=== PATIENT | female | born 1995 | race Caucasian/White ===

== ENCOUNTER 2016-06-13 14:19 | Emergency (ER) | payer OTHER ==
[2016-06-13 14:30] VITALS: BP 114/63
== END 2016-06-13 16:49 | disposition left against medical advice (07) ==
LOC: ED 14:19
DX: R10.9 Unspecified abdominal pain (principal); Z53.21 Procedure and treatment not carried out due to patient leaving prior to being seen by health care provider
CPT/HCPCS: 99281

== ENCOUNTER 2016-06-16 20:31 | Emergency (ER) | payer OTHER ==
[2016-06-16] MEDS ORDERED: NS 0.9% 1000 ML* 2,000 ML IV ONE (21:17)
[2016-06-16] MEDS ORDERED: Ketorolac INJ* 30 MG/ML 1 ML VIAL IV PUSH ONE (21:23)
[2016-06-16 21:46] LABS: Hematocrit 28 % (35-47); Hemoglobin 8.4 g/dl (12.0-16.0); Mean Corpuscular HGB Conc 30 g/dl (31-36); Mean Corpuscular Hemoglobin 18 pg (27-31); Mean Corpuscular Volume 61 fL (80-97); Mean Platelet Volume 10 um3 (7.4-10.4); Red Blood Count 4.58 10^6/ul (4.0-5.4); Red Cell Distribution Width 18 % (10.5-15)
[2016-06-16 21:47] LABS: Add Diff/Slide Review? Slide Review Added; Comments Flag Yes
[2016-06-16 21:57] LABS: Urine Bacteria Absent (Absent); Urine Bilirubin Negative (Negative); Urine Glucose Negative (Negative); Urine Nitrite Negative (Negative)
--- NOTE | 2016-06-16 21:59 | RAD ---
INDICATION: Left-sided flank abdominal pain. COMPARISON: Comparison is made with a prior pelvic ultrasound from February 28, 2016. TECHNIQUE: A CT scan of the abdomen and pelvis was performed without intravenous or oral contrast. Contiguous axial sections were obtained from the lung bases through the symphysis pubis. Images were reconstructed in the coronal and sagittal planes. FINDINGS: The lung bases are clear. No pleural effusion is present. The liver is normal in size without focal abnormality on this noncontrast study. No calcified gallstones are seen. The spleen is mildly enlarged. The pancreas appears within normal limits in size. The adrenal glands and kidneys are normal in size. No renal calculi or hydronephrosis is seen. No ureteral or bladder calculi are seen. The aorta is normal in caliber without significant calcific plaque. No significant enlarged retroperitoneal lymph nodes are seen. The stomach, small and large bowel appear nondistended. The appendix is within normal limits. There is no evidence for diverticulitis or colitis. The uterus is anteverted and upper limits of normal in size. There is prominence of the endometrial density which appears abnormally thick measuring 2.5 cm in thickness. This has increased in size from the prior ultrasound study at which time it was also abnormal. No free intraperitoneal air or fluid is seen. No significant focal osseous abnormality is seen. IMPRESSION: 1. NO EVIDENCE FOR NEPHRO OR UROLITHIASIS. 2. THE ENDOMETRIAL DENSITY APPEARS ABNORMALLY THICKENED. RECOMMEND A PELVIC ULTRASOUND FOR FURTHER EVALUATION. 3. MILD SPLENOMEGALY.
[2016-06-16 22:06] LABS: Add Path Review? YES; Hypochromasia 1+; Microcytosis 2+
[2016-06-16 22:07] LABS: ALT 9 U/L (7-52); AST 9 U/L (13-39); Albumin 4.3 g/dL (3.2-5.2); Alkaline Phosphatase 68 U/L (34-104); Anion Gap 6 mmol/L (2-11); BUN/Creatinine Ratio 18.2 (8-20); Blood Urea Nitrogen 10 mg/dL (6-24); CO2 Carbon Dioxide 22 mmol/L (22-32); Calcium 9.3 mg/dL (8.6-10.3); Chloride 105 mmol/L (101-111); EGFR African American 181.2 (>60); EGFR Non-African American 140.9 (>60); Globulin 2.7 g/dL (2-4); Glucose 90 mg/dL (70-100); Lipase 16 U/L (11.0-82.0); Sodium 133 mmol/L (133-145)
--- NOTE | 2016-06-16 23:16 | ED ---
Abdominal Pain/Female - HPI Summary HPI Summary: 20 F presents with left sided flank pain and abdominal pain for 3 days. She admits to nausea and vomiting. She has never had this pain before. She denies any hematuria, dysuria, vaginal discharge. She says the pain sometimes radiates down to her groin. She does not have a history of kidney stones. She denies any fever, diarrhea or constipation. She has taken tyenlol for the pain. She has a history of abnormal uterine bleeding. - History of Current Complaint Chief Complaint: EDAbdPain Stated Complaint: ABD PAIN Time Seen by Provider: 06/16/16 21:15 Pain Intensity: 9 Allergies/Adverse Reactions: Allergies Allergy/AdvReac Type Severity Reaction Status Date / Time iv contrast dye Allergy Anaphylatic Uncoded 06/13/16 14:30 Shock oral contrast Allergy Anaphylatic Uncoded 06/13/16 14:30 Shock PMH/Surg Hx/FS Hx/Imm Hx Endocrine/Hematology History: Denies: Hx Anticoagulant Therapy Cardiovascular History: Denies: Hx Hypertension Neurological History: Reports: Other Neuro Impairments/Disorders - neurofibromatosis Infectious Disease History: No Infectious Disease History: Denies: Traveled Outside the [place] in Last 30 Days - Family History Known Family History: Positive: None Negative: Cardiac Disease Family History: R & n/C - Social History Alcohol Use: None Hx Substance Use: No Substance Use Type: Reports: None Smoking Status (MU): Current Every Day Smoker Review of Systems Negative: Fever Negative: Chest Pain Negative: Shortness Of Breath Positive: Abdominal Pain - left sided, Vomiting, Nausea. Negative: Diarrhea Negative: dysuria, hematuria All Other Systems Reviewed And Are Negative: Yes Physical Exam Vital Signs On Initial Exam: Initial Vitals Temp Pulse Resp BP Pulse Ox 99.3 F 98 18 105/72 100 06/16/16 20:46 06/16/16 20:46 06/16/16 20:46 06/16/16 20:46 06/16/16 20:46 Vital Signs Reviewed: Yes Appearance: Positive: Well-Appearing Skin: Positive: Warm, Dry Head/Face: Positive: Normal Head/Face Inspection Eyes: Positive: Normal, Conjunctiva Clear ENT: Positive: Normal ENT inspection, Pharynx normal Respiratory/Lung Sounds: Positive: Clear to Auscultation, Breath Sounds Present Cardiovascular: Positive: Normal, RRR Abdomen Description: Positive: Soft, CVA Tenderness (L), Other: - tenderness of LUQ and LLQ, no rebound tenderness Bowel Sounds: Positive: Present Pelvic Exam: Positive: external exam normal, speculum exam normal, bimanual exam normal. Negative: blood, discharge Diagnostics - Vital Signs Vital Signs Temp Pulse Resp BP Pulse Ox 06/16/16 20:46 99.3 F 98 18 105/72 100 - Laboratory Lab Results: Lab Results 06/16/16 06/16/16 06/16/16 Range/Units 21:30 21:30 21:30 WBC 11.0 H (3.5-10.8) 10^3/ul RBC 4.58 (4.0-5.4) 10^6/ul Hgb 8.4 L (12.0-16.0) g/dl Hct 28 L (35-47) % MCV 61 L (80-97) fL MCH 18 L (27-31) pg MCHC 30 L (31-36) g/dl RDW 18 H (10.5-15) % Plt Count 366 (150-450) 10^3/ul MPV 10 (7.4-10.4) um3 Neut % (Auto) 61.7 (38-83) % Lymph % (Auto) 24.1 L (25-47) % [place] % (Auto) 8.6 (1-9) % Eos % (Auto) 3.9 (0-6) % Baso % (Auto) 1.7 (0-2) % Absolute Neuts (auto) 6.8 (1.5-7.7) 10^3/ul Absolute Lymphs (auto) 2.6 (1.0-4.8) 10^3/ul Absolute Monos (auto) 0.9 H (0-0.8) 10^3/ul Absolute Eos (auto) 0.4 (0-0.6) 10^3/ul Absolute Basos (auto) 0.2 (0-0.2) 10^3/ul Absolute Nucleated RBC 0 10^3/ul Nucleated RBC % 0 Normal RBC Morphology Not Reportable Hypochromasia 1+ Microcytosis 2+ Hem Pathologist Commnt Pending Sodium 133 (133-145) mmol/L Potassium 4.0 (3.5-5.0) mmol/L Chloride 105 (101-111) mmol/L Carbon Dioxide 22 (22-32) mmol/L Anion Gap 6 (2-11) mmol/L BUN 10 (6-24) mg/dL Creatinine 0.55 (0.51-0.95) mg/dL Est GFR ( Amer) 181.2 (>60) Est GFR (Non-Af Amer) 140.9 (>60) BUN/Creatinine Ratio 18.2 (8-20) Glucose 90 (70-100) mg/dL Calcium 9.3 (8.6-10.3) mg/dL Total Bilirubin 0.50 (0.2-1.0) mg/dL AST 9 L (13-39) U/L ALT 9 (7-52) U/L Alkaline Phosphatase 68 (34-104) U/L C-React Prot High Sens < 0.20 mg/L Total Protein 7.0 (6.4-8.9) g/dL Albumin 4.3 (3.2-5.2) g/dL Globulin 2.7 (2-4) g/dL Albumin/Globulin Ratio 1.6 (1-3) Lipase 16 (11.0-82.0) U/L Beta HCG, Quant < 0.60 mIU/mL Urine Color Straw Urine Appearance Clear Urine pH 6.0 (5-9) Ur Specific [place] 1.008 L (1.010-1.030) Urine Protein Negative (Negative) Urine Ketones Negative (Negative) Urine Blood Negative (Negative) Urine Nitrate Negative (Negative) Urine Bilirubin Negative (Negative) Urine Urobilinogen Negative (Negative) Ur Leukocyte Esterase 2+ H (Negative) Urine WBC (Auto) Trace(0-5/hpf) (Absent) Urine RBC (Auto) Absent (Absent) Ur Squamous Epith Cells Present H (Absent) Urine Bacteria Absent (Absent) Urine Glucose Negative (Negative) Result Diagrams: 06/16/16 21:30 06/16/16 21:30 Lab Statement: Any lab studies that have been ordered have been reviewed, and results considered in the medical decision making process. - CT abdomen CT Interpretation: No Acute Changes - IMPRESSION: 1. NO EVIDENCE FOR NEPHRO OR UROLITHIASIS. 2. THE ENDOMETRIAL DENSITY APPEARS ABNORMALLY THICKENED. RECOMMEND A PELVIC ULTRASOUND FOR FURTHER EVALUATION. 3. MILD SPLENOMEGALY. CT Interpretation Completed By: Radiologist - Ultrasound No standard instances Ultrasound Interpretation: Positive (See Comments) - markedly thickened and heterogeneous endometrium could indiacte endometrial hyperplasia or carcinoma. further evaulation indicated Ultrasound Interpretation Completed By: Radiologist Re-Evaluation - Re-Evaluation First Eval Re-Evaluation Time: 23:36 Change: Improved Comment: patient pain now located in LLQ. Second Eval Re-Evaluation Time: 23:49 Change: Improved Comment: patient feeling okay, explained results Abdominal Pain Fem Course/Dx - Course Course Of Treatment: 20 F presents with left sided abdominal pain for 3 days. She orginial complained of flank pain but denied any hematuria. had positive CVA tenderness so got CT because orginial suspect kidney stone due to history, CT normal but saw abnormal endometrium, ordered U/s: endometrium hyperplasia , pelvic exam: normal do not suspect PID, explained do not have cause for abdominal pain as ruled out UTI, ovarian cyst, PID, kidney stone, WBC slightly elevated but CRP normal, H/H but no sign of active bleeding suspect has iron deficiency anemia will have follow up with primary and start OTC iron supplement , will have follow up with primary and obgyn for further workup, patient understands and agrees with plan - Diagnoses Differential Diagnosis: Positive: Pelvic Inflammatory Disease, Peptic Ulcer Disease, , Renal Colic, Urinary Tract Infection Provider Diagnoses: Abdominal pain Discharge - Discharge Plan Condition: Good Disposition: HOME Prescriptions: Ondansetron ODT TAB* [Zofran Odt TAB*] 4 mg PO Q6H PRN #20 tab.odt PRN Reason: Nausea Patient Education Materials: Abdominal Pain (ED) Referrals: Maggy Fernández MD [Medical Doctor] - Additional Instructions: Take Tylenol or ibuprofen every 6 hours for pain Take zofran every 6 hours as needed for nausea Follow up with obgyn Follow up with primaryt Return to ED if develop any new or worsening symptoms
[2016-06-16] MEDS ORDERED: Ketorolac INJ* 30 MG/ML 1 ML VIAL IM ONE (23:56)
[2016-06-17] MEDS ORDERED: Ondansetron ODT TAB* 4 MG PO ONE (00:10)
[2016-06-17 00:33] VITALS: BP 94/60
--- NOTE | 2016-06-17 07:57 | RAD ---
INDICATION: Left-sided abdominal pain COMPARISON: CT June 16, 2016 TECHNIQUE: Longitudinal and transverse transvaginal scans of the pelvis were obtained. FINDINGS: Uterus: The uterus is mildly prominent. There are no focal masses. The uterus measures 9.6 x 5.1 x 6.2 cm. Endometrial thickness: The endometrial thickness is measured at 3.5 cm. The endometriosis is heterogeneous. Free fluid: Small amount of . Ovaries: The ovaries are normal in size. The right ovary measures 2.8 x 2.4 x 2.0 cm. The left ovary measures 2.0 x 1.3 x 3.4 cm. . Doppler interrogation demonstrates flow to each ovary was not evaluated because the patient could not remain still during the examination because of abdominal pain. Other: None IMPRESSION: MARKEDLY THICKENED AND HETEROGENEOUS ENDOMETRIUM. SUGGEST GYNECOLOGIC REFERRAL.
--- NOTE | 2016-06-20 10:14 | PN ---
Progress Note - Progress Note Note: A message was left for the patient regarding her positive lab findings and that a prescription was sent to her pharmacy.
== END 2016-06-17 00:32 | disposition home or self-care (01) ==
LOC: ED 20:31
DX: R10.84 Generalized abdominal pain (principal); R11.2 Nausea with vomiting, unspecified; F17.210 Nicotine dependence, cigarettes, uncomplicated
CPT/HCPCS: 36415; 74176; 76830; 80053; 81003; 81015; 83690; 84702; 85025; 85060; 86141; 87086; 87480; 87491; 87510; 87591; 87661; 96372; 96374; 99282

== ENCOUNTER 2017-05-03 13:38 | Emergency (ER) | payer OTHER ==
--- NOTE | 2017-05-03 13:55 | ED ---
Laceration/Wound HPI - HPI Summary HPI Summary: 21 female presents to ED BIBA with complaints of right fifth finger laceration that she sustained while opening a sauce can around 1300 today. Patient denies any pain currently. Bleeding is well controlled. Has not taken any medication. Is not taking anticoagulants. Denies numbness/tingling. Is right hand dominant. No other complaints or injuries. No PMHx. - History of Current Complaint Stated Complaint: RT PINKY LAC Time Seen by Provider: 05/03/17 13:42 Hx Obtained From: Patient Mechanism of Injury: Sharp/Blunt Trauma - opening a sauce can Onset/Duration: Sudden Onset, Lasting Hours Aggravating: Movement Alleviating: Compression Timing: Constant Onset Severity: Mild Current Severity: None Pain Intensity: 0 Pain Scale Used: 0-10 Numeric Associated Signs & Symptoms: Negative Related Hx: Dominant Hand (Right) - Allergy/Home Medications Allergies/Adverse Reactions: Allergies Allergy/AdvReac Type Severity Reaction Status Date / Time iv contrast dye Allergy Anaphylatic Uncoded 06/13/16 14:30 Shock oral contrast Allergy Anaphylatic Uncoded 06/13/16 14:30 Shock PMH/Surg Hx/FS Hx/Imm Hx Endocrine/Hematology History: Denies: Hx Anticoagulant Therapy, Hx Diabetes Cardiovascular History: Denies: Hx Hypertension Neurological History: Reports: Other Neuro Impairments/Disorders - neurofibromatosis - Surgical History Surgery Procedure, Year, and Place: n/a - Immunization History Date of Tetanus Vaccine: UTD 2016 Date of Influenza Vaccine: UTD Immunizations Up to Date: Yes Infectious Disease History: No Infectious Disease History: Denies: Traveled Outside the [place] in Last 30 Days - Family History Known Family History: Positive: None Negative: Cardiac Disease Family History: R & n/C - Social History Alcohol Use: None Hx Substance Use: No Substance Use Type: Reports: None Smoking Status (MU): Current Every Day Smoker Review of Systems Constitutional: Negative Cardiovascular: Negative Respiratory: Negative Musculoskeletal: Negative Positive: Other - laceration Neurological: Negative All Other Systems Reviewed And Are Negative: Yes Physical Exam Triage Information Reviewed: Yes Vital Signs On Initial Exam: Initial Vitals Temp Pulse Resp BP Pulse Ox 97.5 F 89 18 103/61 100 05/03/17 13:48 05/03/17 13:48 05/03/17 13:48 05/03/17 13:48 05/03/17 13:48 Vital Signs Reviewed: Yes Appearance: Positive: Well-Appearing, No Pain Distress, Well-Nourished Skin: Positive: Warm, Skin Color Reflects Adequate Perfusion, Dry, Other - 1cm linear laceration on palmar fifth digit right hand beneath PIP. no FB, no active bleeding, no bony/ligamentous involvment. Negative: Cold, Cyanosis @, Pale, Erythema @ Eyes: Positive: Conjunctiva Clear ENT: Positive: Hearing grossly normal Neck: Positive: Supple Respiratory/Lung Sounds: Positive: Clear to Auscultation, Breath Sounds Present. Negative: Rales, Rhonchi, Wheezes Cardiovascular: Positive: Normal, RRR, Pulses are Symmetrical in both Upper and Lower Extremities - 2+ radial b/l. Negative: Murmur, Rub Musculoskeletal: Positive: Normal, Strength/ROM Intact, Pain @ - mild on palpation of laceration, Other - no crepitus step off or obvious deformity other than laceration noted on fifth right digit, palmar side. Negative: Limited @, Interruption @, Abnormal @, Edema Left, Edema Right Neurological: Positive: Normal, Sensory/Motor Intact, Alert, Oriented to Person Place, Time, CN Intact II-III, Reflexes Intact, NV Bundle Intact Distally, Normal Gait - [place] Coma Scale Coma Scale Total: 15 Procedures - Laceration/Wound Repair 1 Location: upper extremity - right 5fth digit Description: Linear Length, Depth and Shape: 1.0cm linear, superficial epidermal layer Betadine Prep?: Yes - in irrigation Irrigated w/ Saline (ccs): 500 Laceration/Wound Explored: clean, no foreign body removed Closure: Skin Adhesive Sterile Dressing Applied?: Yes - telfa, kerlex and coban Diagnostics - Vital Signs Vital Signs Temp Pulse Resp BP Pulse Ox 05/03/17 13:48 97.5 F 89 18 103/61 100 - Laboratory Lab Statement: Any lab studies that have been ordered have been reviewed, and results considered in the medical decision making process. Laceration Repair Course/Dx - Course Course Of Treatment: no xray obtained due to JEN and PE findings. laceration was superficial without bleeding. irrigated thouroughly, no concern for FB. Closed nicely with skin adhesive and without complication, well approximated. Patient tolerated procedure well. No other complaints or conerns. Tetanus UTD. Aware of worsening signs and symptoms such as infection. Ibuprofen as needed for discomfort. RICE and keep clean and dry. Apply triple antibiotic ointment - Differential Dx Differental Diagnoses: Abrasion, Avulsion, Fracture, Laceration - Clinical Impression Provider Diagnoses: Laceration of finger of right hand Discharge - Discharge Plan Condition: Stable Disposition: HOME Patient Education Materials: Laceration (ED), Skin Adhesive Care (ED) Referrals: Non Staff,Doctor [Primary Care Provider] - Additional Instructions: Do not get finger wet for 24-48 hours so glue has time to start working. Watch for signs of infection, if develops please seek medical attention (redness , discharge, pain, swelling). Keep clean and dry. After 3-4 days and once closes you may apply neosporin. Follow up with PCP. Any new or worsening symptoms please seek medical attention promptly.
[2017-05-03 16:47] VITALS: BP 0/0
== END 2017-05-03 16:46 | disposition home or self-care (01) ==
LOC: ED 13:51
DX: S61.216A Laceration without foreign body of right little finger without damage to nail, initial encounter (principal); W26.8XXA Contact with other sharp object(s), not elsewhere classified, initial encounter; Y93.G1 Activity, food preparation and clean up; Y92.9 Unspecified place or not applicable; Q85.00 Neurofibromatosis, unspecified; Z91.041 Radiographic dye allergy status; F17.210 Nicotine dependence, cigarettes, uncomplicated
CPT/HCPCS: 12001; 99281

== ENCOUNTER 2020-08-21 02:05 | Inpatient (IN) ==
[2020-08-21 03:20] LABS: Urine Appearance Cloudy; Urine Bilirubin Negative (Negative); Urine Blood Negative (Negative); Urine Color Straw; Urine Glucose Negative (Negative); Urine Ketones Negative (Negative); Urine Nitrite Negative (Negative); Urine Protein Negative (Negative); Urine Specific Gravity 1.008 (1.002-1.030); Urine Urobilinogen Negative (Negative)
[2020-08-21 03:23] LABS: Urine Bacteria Absent (Absent); Urine Red Blood Cell Absent (Absent); Urine Squamous Epithelial Cell Present (Absent); Urine White Blood Cell Trace(0-5/hpf) (Absent)
[2020-08-21 03:26] LABS: ABS Basophils 0.2 10^3/ul (0-0.2); ABS Eosinophils 0.6 10^3/ul (0-0.6); ABS Neutrophils 5.9 10^3/ul (1.5-7.7); Eosinophil % 5.8 %; Hematocrit 29 % (35-47); Hemoglobin 9.1 g/dL (12.0-16.0); Lymphocyte % 21.1 %; Mean Corpuscular HGB Conc 32 g/dL (31-36); Mean Corpuscular Hemoglobin 20 pg (27-31); Mean Corpuscular Volume 64 fL (80-97); Mean Platelet Volume 9.7 fL (7.4-10.4); Platelet Count 304 10^3/uL (150-450); Red Blood Count 4.45 10^6 /uL (3.70-4.87); Red Cell Distribution Width 18 % (10-15); White Blood Count 9.7 10^3/uL (3.5-10.8)
[2020-08-21 03:40] LABS: Acetaminophen < 15 mcg/mL; Alcohol, S < 10 mg/dL (<10); Salicylate < 2.50 mg/dL (<30)
[2020-08-21 03:45] LABS: HCG Pregnancy 6.88 mIU/mL
[2020-08-21 03:53] LABS: TSH Ultra Thyroid Stim Horm 3.44 mcIU/mL (0.34-5.60)
[2020-08-21 03:54] LABS: Urine Benzodiazepine Screen None Detected (None Detect); Urine Cannabinoids Screen None Detected (None Detect); Urine Opiates Screen None Detected (None Detect)
[2020-08-21 03:55] LABS: Microcytosis 2+
[2020-08-21 04:38] LABS: Albumin 4.2 g/dL (3.2-5.2); Albumin/Globulin Ratio 1.8 (1-3); BUN/Creatinine Ratio 21.6 (8-20); Calcium 9.2 mg/dL (8.6-10.3); EGFR African American 179.3 (>60); EGFR Non-African American 148.2 (>60); Globulin 2.4 g/dL (2-4); Potassium 3.9 mmol/L (3.5-5.0); Total Bilirubin 0.4 mg/dL (0.2-1.0); Total Protein 6.6 g/dL (6.4-8.9)
[2020-08-21] MEDS ORDERED: Al Hydrox/Mg Hydrox/Simet LIQ 30 ML UDC PO PRN (07:31)
[2020-08-21] MEDS: Vitamin THERAPEUTIC TAB PO SCH (09:20)
[2020-08-21] MEDS ORDERED: Ondansetron ODT 4 mg TAB 4 MG TAB SL PRN (14:59)
[2020-08-22 08:15] LABS: HDL Cholesterol 48.2 mg/dL
[2020-08-22 08:21] LABS: HCG Pregnancy 15.55 mIU/mL
[2020-08-22] MEDS: Vitamin THERAPEUTIC TAB PO SCH (10:06)
[2020-08-23] MEDS: Vitamin THERAPEUTIC TAB PO SCH (08:33)
[2020-08-24] MEDS: Vitamin THERAPEUTIC TAB PO SCH (08:48)
[2020-08-25] MEDS: Vitamin THERAPEUTIC TAB PO SCH (07:42)
[2020-08-25 08:35] VITALS: BP 120/86
== END 2020-08-25 12:58 | disposition home or self-care (01) | DRG 753 ==
LOC: ED 02:05 → BSU 08:58
PROVIDERS: ADMIT Psychiatry & Neurology Psychiatry; ATTEND Psychiatry & Neurology Psychiatry